=== PATIENT | male | born 1935 | race Caucasian/White ===

== ENCOUNTER → 2019-05-18 | Outpatient (CLI) | payer OTHER, MEDICARE ==
[2019-05-18 13:23] LABS: INTERNATIONAL RATION (INR) 1.54; PROTHROMBIN TIME 18.6 SEC (11.4-15.4)
== END ==
LOC: OD 11:48
PROVIDERS: ATTEND Nurse Practitioner Family
DX: Z51.81 Encounter for therapeutic drug level monitoring (principal); Z92.29 Personal history of other drug therapy; Z79.01 Long term (current) use of anticoagulants
CPT/HCPCS: 36415; 85610

== ENCOUNTER 2019-05-31 13:52 | Emergency (ER) | payer OTHER, MEDICARE ==
--- NOTE | 2019-05-31 14:07 | ER Document Report ---
ED Medical Screen (RME) - General Chief Complaint: Shortness Of Breath Stated Complaint: SHORTNESS OF BREATH Time Seen by Provider: 05/31/19 14:00 Primary Care Provider: JENIFFER BROWN NP [Primary Care Provider] - Follow up as needed Mode of Arrival: Ambulatory Information source: Patient Notes: This 83-year-old male with history of cardiac disease and diabetes presents emergency department with complaints of urinary frequency decreased sleep abdominal pressure for the past 2 weeks. Denies chest pain. Reports he tried to go to see his primary care provider but they were not able to see him and gave an appointment for Tuesday. Reports his sugars have been in the 200s. I have greeted and performed a rapid initial assessment of this patient. A comprehensive ED assessment and evaluation of the patient, analysis of test results and completion of the medical decision making process will be conducted by additional ED providers. Dictation of this chart was performed using voice recognition software; therefore, there may be some unintended grammatical errors. TRAVEL OUTSIDE OF THE [place] IN LAST 30 DAYS: No Doctor's Discharge - Discharge Referrals: JENIFFER BROWN NP [Primary Care Provider] - Follow up as needed
--- NOTE | 2019-05-31 14:44 | RADIOLOGY REPORT (SQ) ---
EXAM DESCRIPTION: KUB/ABDOMEN (SINGLE VIEW) COMPLETED DATE/TIME: 05/31/2019 2:34 pm REASON FOR STUDY: ABD PRESSURE COMPARISON: None. NUMBER OF VIEWS: One view. TECHNIQUE: Supine radiographic image of the abdomen acquired. LIMITATIONS: None. FINDINGS: BOWEL GAS PATTERN: Normal bowel gas pattern. No dilated loops. CALCIFICATIONS: No suspicious calcifications. SOFT TISSUES: No gross mass or suggestion of organomegaly. HARDWARE: None in the abdomen. BONES: No acute fracture. No worrisome bone lesions. OTHER: No other significant finding. IMPRESSION: NO RADIOGRAPHIC EVIDENCE FOR ACUTE ABDOMINAL DISEASE. TECHNICAL DOCUMENTATION: JOB ID: [id number] [employer]- All Rights Reserved Reading location - IP/workstation name: [email or web address]
--- NOTE | 2019-05-31 14:44 | RADIOLOGY REPORT (SQ) ---
EXAM DESCRIPTION: CHEST 2 VIEWS COMPLETED DATE/TIME: 05/31/2019 2:34 pm REASON FOR STUDY: ABD PAIN HX MS COMPARISON: None. EXAM PARAMETERS: NUMBER OF VIEWS: two views TECHNIQUE: Digital Frontal and Lateral radiographic views of the chest acquired. RADIATION DOSE: NA LIMITATIONS: none FINDINGS: LUNGS AND PLEURA: Bilateral pleural effusions. Airspace disease in each lower lobe. MEDIASTINUM AND HILAR STRUCTURES: No masses or contour abnormalities. HEART AND VASCULAR STRUCTURES: Heart size is borderline. No huong pulmonary edema. BONES: No acute findings. HARDWARE: Pacemaker. Sternotomy wires. OTHER: No other significant finding. IMPRESSION: Borderline cardiomegaly with no pulmonary edema. Small pleural effusions. Airspace dis ease in each lower lobe, atelectasis versus pneumonia. TECHNICAL DOCUMENTATION: JOB ID: [id number] [employer]- All Rights Reserved Reading location - IP/workstation name: [email or web address]
[2019-05-31 15:07] LABS: ABSOLUTE EOSINOPHILS # (AUTO) 0.1 10^3/uL (0.0-0.6); ABSOLUTE LYMPHOCYTES (AUTO) 0.5 10^3/uL (0.5-4.7); ABSOLUTE MONOCYTES (AUTO) 0.3 10^3/uL (0.1-1.4); ABSOLUTE NEUT (AUTO) 3.6 10^3/uL (1.7-8.2); EOSINOPHILS % (AUTO) 1.6 % (0-6); HEMATOCRIT 34.1 % (37.9-51.0); LYMPHOCYTES % (AUTO) 11.6 % (13-45); MEAN CORPUSCULAR HGB CONC 32.4 g/dL (32.0-36.0); MEAN CORPUSCULAR VOLUME 80 fl (80-97); MONOCYTES % (AUTO) 7.2 % (3-13); PLATELET COUNT 209 10^3/uL (150-450); RED BLOOD COUNT 4.24 10^6/uL (4.35-5.55); RED CELL DISTRIBUTION WIDTH 17.7 % (11.5-14.0); SEGMENTED NEUTROPHILS % (AUTO) 78.6 % (42-78); TOTAL CELLS COUNTED % (AUTO) 100 %; WHITE BLOOD COUNT 4.6 10^3/uL (4.0-10.5)
[2019-05-31 15:31] LABS: ALKALINE PHOSPHATASE 84 U/L (38-126); ANION GAP 10 (5-19); ASPARTATE AMINO TRANSFERASE 20 U/L (17-59); BILIRUBIN,DIRECT 0.2 mg/dL (0.0-0.4); BILIRUBIN,TOTAL 0.9 mg/dL (0.2-1.3); BLOOD UREA NITROGEN 34 mg/dL (7-20); CALCIUM 9.4 mg/dL (8.4-10.2); CARBON DIOXIDE 27 mmol/L (22-30); CHLORIDE 102 mmol/L (98-107); CREATINE KINASE 55 U/L (55-170); GLUCOSE 165 mg/dL (75-110); POTASSIUM 4.3 mmol/L (3.6-5.0); TOTAL PROTEIN 7.2 g/dL (6.3-8.2)
[2019-05-31 15:43] LABS: CREATINE KINASE MB 2.46 ng/mL (<4.55); TROPONIN I 0.024 ng/mL
--- NOTE | 2019-05-31 16:06 | ER Document Report ---
ED General - General Chief Complaint: Epigastric Pain Stated Complaint: SHORTNESS OF BREATH Time Seen by Provider: 05/31/19 14:00 Primary Care Provider: JENIFFER BROWN NP [NO LOCAL MD] - Follow up as needed Mode of Arrival: Ambulatory TRAVEL OUTSIDE OF THE [place] IN LAST 30 DAYS: No - HPI Patient complains to provider of: SOB Notes: Increasing shortness of breath and orthopnea for 2 weeks. Patient has a lengthy history of congestive heart failure. He states he having difficulty sleeping secondary to huong shortness of breath but gets them in the middle of the night. Patient does take Lasix twice daily. But he has been taking his last dose at 11 PM. She denies chest pain, fever, chills, cough. - Related Data Allergies/Adverse Reactions: No Known Allergies Allergy (Unverified 05/31/19 14:08) Past Medical History - General Information source: Patient - Social History Smoking Status: Never Smoker Chew tobacco use (# tins/day): No Frequency of alcohol use: None Drug Abuse: None Family History: None Patient has suicidal ideation: No Patient has homicidal ideation: No - Past Medical History Cardiac Medical History: Reports: Hx Heart Attack Review of Systems - Review of Systems Notes: REVIEW OF SYSTEMS: CONSTITUTIONAL: -fevers, -chills EENT: -eye pain, -difficulty swallowing, -nasal congestion CARDIOVASCULAR: -chest pain, -syncope, positive orthopnea RESPIRATORY: -cough, positive SOB GASTROINTESTINAL: -abdominal pain, -nausea, -vomiting, -diarrhea GENITOURINARY: -dysuria, -hematuria MUSCULOSKELETAL: -back pain, -neck pain SKIN: -rash or skin lesions. HEMATOLOGIC: -easy bruising or bleeding. LYMPHATIC: -swollen, enlarged glands. NEUROLOGICAL: -altered mental status or loss of consciousness, -headache, - neurologic symptoms PSYCHIATRIC: -anxiety, -depression. ALL OTHER SYSTEMS REVIEWED AND NEGATIVE. Physical Exam - Vital signs Vitals: Temp Pulse Resp BP Pulse Ox 97.5 F 70 16 125/63 98 05/31/19 14:00 05/31/19 14:00 05/31/19 14:00 05/31/19 14:00 05/31/19 14:00 - Notes Notes: PHYSICAL EXAMINATION: GENERAL: Well-appearing, well-nourished and in no acute distress. HEAD: Atraumatic, normocephalic. EYES: Pupils equal round and reactive to light, extraocular movements intact, sclera anicteric, conjunctiva are normal. ENT: nares patent, oropharynx clear without exudates. Moist mucous membranes. NECK: Normal range of motion, supple without lymphadenopathy LUNGS: Bilateral basilar crackles HEART: Regular rate and rhythm without murmurs ABDOMEN: Soft, nontender, normoactive bowel sounds. No guarding, no rebound. No masses appreciated. EXTREMITIES: Normal range of motion, no pitting or edema. No cyanosis. NEUROLOGICAL: Cranial nerves grossly intact. Normal speech, normal gait. Normal sensory and motor exams. PSYCH: Normal mood, normal affect. SKIN: Warm, Dry, normal turgor, no rashes or lesions noted. Course - Re-evaluation Re-evalutation: 05/31/19 16:07 Well-appearing 83-year-old male presents with 2 weeks of increasing symptoms of orthopnea. 05/31/19 16:45 Patient's chest x-ray is some small pleural effusions but no other acute processes. Patient is afebrile, no leukocytosis. No cough. No history of pneumonia. Patient's EKG is nonischemic, troponin near normal. Patient does have severe elevation is proBNP. Patient is scheduled to see his family doctor on Tuesday. Patient had his Lasix cut in half about 2 months ago. He is now taking only 20 mg in the morning and 20 mg afternoon. Encourage patient to go back to 40 mg in the morning 40 mg at night. Patient will be given IV dose of Lasix in the emergency department. Will be discharged home improved return if anything changes follow-up with PCP on Tuesday. - Vital Signs Vital signs: Temp Pulse Resp BP Pulse Ox 97.5 F 70 14 135/75 H 98 05/31/19 14:00 05/31/19 14:00 05/31/19 15:01 05/31/19 15:01 05/31/19 15:01 - Laboratory Result Diagrams: 05/31/19 14:55 05/31/19 14:55 Laboratory results interpreted by me: 05/31/19 05/31/19 05/31/19 14:55 14:55 14:55 RBC 4.24 L Hgb 11.0 L Hct 34.1 L MCH 26.0 L RDW 17.7 H Lymph % (Auto) 11.6 L Seg Neutrophils % 78.6 H APTT 45.9 H BUN 34 H Creatinine 2.11 H Est GFR ( Amer) 36 L Est GFR (MDRD) Non-Af 30 L Glucose 165 H NT-Pro-B Natriuret Pep 05/31/19 14:55 RBC Hgb Hct MCH RDW Lymph % (Auto) Seg Neutrophils % APTT BUN Creatinine Est GFR ( Amer) Est GFR (MDRD) Non-Af Glucose NT-Pro-B Natriuret Pep 98045 H - EKG Interpretation by Me Additional EKG results interpreted by me: 05/31/19 15:58 Atrial sensed pacing rhythm 74 bpm, no ST elevations or depressions, no tacky dysrhythmias. Discharge - Discharge Clinical Impression: CHF (congestive heart failure) Qualifiers: Heart failure type: unspecified Heart failure chronicity: acute on chronic Qualified Code(s): I50.9 - Heart failure, unspecified Condition: Stable Disposition: HOME, SELF-CARE Instructions: Congestive Heart Failure ([facility]) Referrals: JENIFFER BROWN NP [NO LOCAL MD] - Follow up as needed
[2019-05-31 16:11] LABS: PARTIAL THROMBOPLASTIN TIME 45.9 SEC (23.5-35.8)
[2019-05-31] MEDS ORDERED: FUROSEMIDE INJ/PF 40 MG/4 ML SDV IV ONE (16:40)
[2019-05-31 16:47] VITALS: BP 155/81
[2019-05-31 16:48] LABS: INTERNATIONAL RATION (INR) 2.71; PROTHROMBIN TIME 29.3 SEC (11.4-15.4)
--- NOTE | 2019-05-31 19:01 | EKG REPORT ---
SEVERITY:- ABNORMAL ECG - ATRIAL-SENSED VENTRICULAR-PACED COMPLEXES PROBABLE LEFT ATRIAL ABNORMALITY LEFT BUNDLE BRANCH BLOCK : Confirmed by: Mason Diamond MD 31-May-2019 19:00:33
== END 2019-05-31 16:58 | disposition home or self-care (01) ==
LOC: ER 13:52
DX: I50.9 Heart failure, unspecified (principal); J90 Pleural effusion, not elsewhere classified; I25.2 Old myocardial infarction; R06.02 Shortness of breath; R06.01 Orthopnea; Z79.899 Other long term (current) drug therapy
CPT/HCPCS: 93005; 99283; 96374; 36415; 82553; 82962; 82550; 85025; 85610; 85730; 80053; 84484; 83880; 71046; 74018; 93010; J1940

== ENCOUNTER → 2019-07-24 | Outpatient (CLI) | payer OTHER ==
--- NOTE | 2019-07-24 15:31 | RADIOLOGY REPORT (SQ) ---
EXAM DESCRIPTION: CT CHEST WITHOUT COMPLETED DATE/TIME: 07/24/2019 3:09 pm REASON FOR STUDY: I31.3 PERICARDIAL EFFUSION (NONINFLAMMATORY) I31.3 PERICARDIAL EFFUSION (NONINFLA MMATORY) COMPARISON: Chest x-ray dated 05/31/2019 TECHNIQUE: CT scan performed of the chest without intravenous contrast. Images reviewed with lung, soft tissue and bone windows. Reconstructed coronal and sagittal MPR images reviewed. All images st ored on PACS. All CT scanners at this facility use dose modulation, iterative reconstruction, and/or weight based d osing when appropriate to reduce radiation dose to as low as reasonably achievable (ALARA). [facility]: Dose Right [facility]: CareDose [facility]: Dose Right [facility]: Teradose 4D [facility]: [employer] RADIATION DOSE: CT Rad equipment meets quality standard of care and radiation dose reduction techniq ues were employed. CTDIvol: 5.8 mGy. DLP: 245 mGy-cm. mGy. LIMITATIONS: No technical limitations. FINDINGS: LUNGS AND PLEURA: There are moderate bilateral pleural effusions right greater than left. There is basilar atelectasis. HILAR AND MEDIASTINAL STRUCTURES: No identified masses or abnormal nodes. No obvious aneurysm. HEART AND VASCULAR STRUCTURES: No pericardial effusion. No aneurysm. Extensive coronary artery calc ification. UPPER ABDOMEN: No significant findings. Limited exam. THYROID AND OTHER SOFT TISSUES: No masses. No adenopathy. BONES: No acute findings. HARDWARE: Battery pack and leads are in place along with sternotomy wires. OTHER: No other significant findings. IMPRESSION: Moderate bilateral pleural effusions right greater than left. Bibasilar atelectasis. N o pericardial effusion. TECHNICAL DOCUMENTATION: JOB ID: [id number] Quality ID # [id number]: Final reports with documentation of one or more dose reduction techniques (e.g., Au tomated exposure control, adjustment of the mA and/or kV according to patient size, use of iterative reconstruction technique) 2010 [employer]- All Rights Reserved Reading location - IP/workstation name: [email or web address]
== END ==
LOC: RAD 14:29
PROVIDERS: ATTEND Internal Medicine Cardiovascular Disease
DX: I31.3 Pericardial effusion (noninflammatory) (principal)
CPT/HCPCS: 71250; 82565

== ENCOUNTER → 2019-09-11 | Outpatient (CLI) | payer MEDICARE, OTHER ==
--- NOTE | 2019-09-11 16:40 | RADIOLOGY REPORT (SQ) ---
EXAM DESCRIPTION: U/S RETROPERITON (RENAL/AORTA) COMPLETED DATE/TIME: 09/11/2019 3:55 pm REASON FOR STUDY: N18.4 CHRONIC KIDNEY DISEASE, STAGE 4 (SEVERE) N18.4 CHRONIC KIDNEY DISEASE, STAG E 4 (SEVERE) COMPARISON: None. TECHNIQUE: Dynamic and static grayscale images acquired of the kidneys and bladder and recorded on P ACS. Additional selected color Doppler and spectral images recorded. LIMITATIONS: None. FINDINGS: RIGHT KIDNEY: 8.2 cm. Normal echogenicity. No solid or suspicious masses. No hydron ephrosis. No calcifications. LEFT KIDNEY: 8.5 cm. Normal echogenicity. Cyst in the mid kidney measuring 1.6 cm and cyst in th e lower pole measuring 2.8 cm. No solid or suspicious masses. No hydronephrosis. No calcificatio ns. BLADDER: No masses. OTHER FINDINGS: Bilateral pleural effusions. Stones and sludge in the gallbladder. IMPRESSION: 1. SMALL KIDNEYS. CYSTS IN THE LEFT KIDNEY. NO HYDRONEPHROSIS OR ACUTE FINDINGS. 2. PLEURAL EFFUSIONS. STONES AND SLUDGE IN THE GALLBLADDER. TECHNICAL DOCUMENTATION: JOB ID: [id number] [employer]- All Rights Reserved Reading location - IP/workstation name: [email or web address]
== END ==
LOC: RAD 14:49
PROVIDERS: ATTEND Internal Medicine Nephrology
DX: N18.4 Chronic kidney disease, stage 4 (severe) (principal); J90 Pleural effusion, not elsewhere classified; K80.20 Calculus of gallbladder without cholecystitis without obstruction; Q61.02 Congenital multiple renal cysts
CPT/HCPCS: 76770

== ENCOUNTER 2019-12-11 07:53 | Emergency (ER) | payer OTHER, MEDICARE ==
[2019-12-11] MEDS ORDERED: PIPERACILLIN/TAZOBACTAM 3.375 GM VIAL IV ONE (08:30)
--- NOTE | 2019-12-11 08:35 | ER Document Report ---
ED Extremity Problem, Lower - General Information source: Patient TRAVEL OUTSIDE OF THE [place] IN LAST 30 DAYS: No - HPI Patient complains to provider of: Pain Location: Foot Occurred: Last week Onset/Duration: Worse Quality of pain: Achy Pain Level: 2 Recent injury: No Associated symptoms: denies: Chills, Fever, Rapid heart rate Exacerbated by: Movement, Walking Relieved by: Nothing <ANGI COSTELLO - Last Filed: 12/11/19 16:40> <WILY ENGLE - Last Filed: 12/11/19 21:13> <SANDRA MCCARTNEY - Last Filed: 12/12/19 00:33> - General Chief Complaint: Feet Swelling Stated Complaint: FEET SWEELING Time Seen by Provider: 12/11/19 08:11 Primary Care Provider: AYLIN LEYVA DO [Primary Care Provider] - Follow up as needed Notes: Patient presents with diabetic foot wounds to bilateral feet right worse than left. 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 Patient states that he has been performing vinegar and wa ter soaks at home. Patient denies any fever or currently taking any antibiotics (PRAVIN,KELTSTANNER) - Related Data Allergies/Adverse Reactions: No Known Allergies Allergy (Verified 12/11/19 09:18) Past Medical History - General Information source: Patient - Social History Smoking Status: Never Smoker Chew tobacco use (# tins/day): No Frequency of alcohol use: None Drug Abuse: None Occupation: none Family History: None Patient has suicidal ideation: No Patient has homicidal ideation: No - Past Medical History Cardiac Medical History: Reports: Hx Congestive Heart Failure, Hx Coronary Artery Disease, Hx Heart Attack Pulmonary Medical History: Reports: Hx COPD Endocrine Medical History: Reports: Hx Diabetes Mellitus Type 1 Renal/ Medical History: Reports: Hx Benign Prostatic Hyperplasia, Hx Renal Insufficiency Musculoskeletal Medical History: Reports Other - Charcot Past Surgical History: Reports: Hx Coronary Artery Bypass Graft - x3, Hx Pacemaker, Hx Vascular Surgery - Carotid endarterectomy <ANGI COSTELLO - Last Filed: 12/11/19 16:40> Review of Systems - Review of Systems Constitutional: No symptoms reported. denies: Fever EENT: No symptoms reported Cardiovascular: No symptoms reported. denies: Chest pain Respiratory: No symptoms reported. denies: Cough, Short of breath Gastrointestinal: No symptoms reported. denies: Nausea, Vomiting Genitourinary: No symptoms reported Male Genitourinary: No symptoms reported Musculoskeletal: Joint pain - Right foot Skin: Change in color - Erythema to right foot, Other - Foot wounds bilateral feet Hematologic/Lymphatic: No symptoms reported Neurological/Psychological: No symptoms reported <ANGI COSTELLO - Last Filed: 12/11/19 16:40> Physical Exam - General General appearance: Appears well, Alert In distress: None - HEENT Head: Normocephalic, Atraumatic Nasal: Normal Mouth/Lips: Normal Neck: Normal, Supple - Respiratory Respiratory status: No respiratory distress Chest status: Nontender Breath sounds: Normal Chest palpation: Normal - Cardiovascular Rhythm: Regular Heart sounds: S1 appreciated, S2 appreciated - Back Back: Normal. No: CVA tenderness - Extremities General upper extremity: Normal inspection, Normal ROM Foot: Tender - Mild tenderness to right foot, bilateral feet with diabetic foot ulcers, erythema to right foot extending to the ankle - Neurological Neuro grossly intact: Yes Cognition: Normal Orientation: AAOx4 Brandee Coma Scale Eye Opening: Spontaneous Waddell Coma Scale Verbal: Oriented Brandee Coma Scale Motor: Obeys Commands Waddell Coma Scale Total: 15 - Psychological Associated symptoms: Normal affect, Normal mood - Skin Skin Temperature: Warm Skin Moisture: Dry Skin Color: Erythema - Erythema to right foot Skin irregularity: other - Right foot with large diabetic foot wound to the n eural aspect of fifth metatarsal, medial first metatarsal, and chronic appearing crusted wound to the dorsal aspect of the right third toe, foot erythematous and warm to touch. Left foot with denuded area to the plantar surface of left third toe and dorsal second toe, patient with diabetic foot wound to the lateral aspect of the distal fifth metatarsal. Wounds to right foot malodorous. Irregularity with: Tenderness, Warmth, Inflammation <ANGI COSTELLO - Last Filed: 12/11/19 16:40> - Vital signs Vitals: Temp Pulse Resp BP Pulse Ox 97.4 F 86 16 113/54 L 100 12/11/19 07:57 12/11/19 07:57 12/11/19 07:57 12/11/19 07:57 12/11/19 07:57 Course - Laboratory Result Diagrams: 12/11/19 08:50 12/11/19 08:50 - Diagnostic Test Radiology reviewed: Pending, Image reviewed <ANGI COSTELLO - Last Filed: 12/11/19 16:40> - Laboratory Result Diagrams: 12/11/19 08:50 12/11/19 08:50 <WILY ENGLE Shane - Last Filed: 12/11/19 21:13> - Laboratory Result Diagrams: 12/11/19 08:50 12/11/19 08:50 - Diagnostic Test Radiology reviewed: Image reviewed, Reports reviewed <REGIS MCCARTNEYABRAHAM Vitale - Last Filed: 12/12/19 00:33> - Re-evaluation Re-evalutation: 12/11/19 09:55 Patient with cellulitis in the setting of chronic diabetic foot wounds. Wound to the right foot worrisome for possible osteomyelitis although radiology report is still pending at this time. Patient without any fever although does have a leukocytosis with a shift. Patient with a history of chronic kidney disease stage IV although appears to have acute on chronic renal failure at this time. When patient advised of his current BUN and creatinine results he did state that they are higher than normal for him. Patient also takes Coumadin daily and INR is currently pending at this time. Call placed to hospitalist Dr. Fernandez, he will return call for consultation shortly. 12/11/19 10:[address] Coyne, who agrees to come and evaluate patient 12/11/19 10:[address] Zepeda who agrees to accept patient as an [facility] admission at this time. 12/11/19 11:00 Hospitalist and surgeon both evaluated patient. Hospitalist concerned about patient's multiple comorbidities and whether patient is suitable to be managed at this facility. Dr Coyne recommends consultation with anesthesiologist to see if they are comfortable managing patient. Anesthesiologist recommends consultation with patient's asphalt raker, call placed for consultation with Dr. Gallegos, awaiting return call at this time. 12/11/19 11:32 Consulted with patient's asphalt raker Dr. Gallegos who recommends obtaining a stat echocardiogram as well as EKG. He does not feel that patient requires transfer at this time, although if anesthesia is not comfortable performing sedation for the required procedure he states it would be up to them to arrange for transfer to a facility capable of performing the procedure. Dr Zepeda also spoke with Dr. Gallegos and plans to admit the patient at this time. 12/11/19 11:50 Dr Zepeda reports that patient is now requesting transfer to facility that has higher level capability to manage his surgery and any potential complications. Spoke with patient regarding his request for transfer at this time. Patient confirms that he would like to go to a facility that has more advanced capability in case he has any complication due to his cardiac arrest that he had after having a carotid endarterectomy 5 months ago. Explained to patient that his insurance may not cover the transfer fees as this is a patient elected transfer, patient acknowledges this and request transfer at this time. 12/11/19 12:01 Call placed to [facility] [place], [facility] is not accepting pt requested transfers due to the Covid 19 outbreak. Pt advised that we may not be able to transfer him due to the pretty virus pandemic. Pt requests call be made to [facility]. 12/11/19 12:18 Call placed to the [facility] transfer center. Staff there did not have records of [facility], they request additional information to be sent to determine whether or not he is indeed a . Patient updated regarding plan of care at this time. 12/11/19 12:28 Dr. Gallegos and to evaluate patient. 12/11/19 13:23 [facility] called stating that they accidentally deleted patient's demographic sheet and are requesting an additional sheet be refaxed to them. They still do not know if patient is in their system and are not requesting that his complete chart be faxed at this time. They state that they will call back once they know whether or not he is in their system. 12/11/19 13:48 [facility] from [place] called requesting additional information. Transfer center there states that they will contact the [facility] facility to confirm if patient is associated with their facility. Transfer center states that if he is not in the system that he would need to get a local primary care provider in the [facility] system and bring his DD 214 form to their facility before they would be able to assume care of him. 12/11/19 14:19 Spoke with the patient's Stewart at patient's request to update her regarding plan of care at this time. Made contact with the transfer center at the [facility] in [place] states that patient is in the [place] system and that they are in the process of contacting the [place] transfer center. Transfer center states that they will be in contact with additional information. 12/11/19 16:41 Report and handoff given to Wily Engle NP. (ANGI COSTELLO) 12/11/19 19:37 I called and spoke with a transfer center at the [facility] to hopefully get a update on the status of the patient requested transfer. The transfer center reports that they are working on getting the patient's information to the attending physicians so that they can review his case and decide if it is appropriate for transfer. They further stated to me that patient would have to have a negative COVID-19 test prior to transfer acceptance. 12/11/19 20:[address] Coyne came back to the bedside to evaluate the patient and get an update. Since there is currently a hold up with the patient getting accepted at the [facility] he feels that the patient needs to be admitted here so that we can start working on getting his INR to a therapeutic level so that the patient can go to the operating room in the morning. This was discussed with the patient and the patient is in agreements with this plan. Will call hospitalist to discuss. 12/11/19 20:45 Called and spoke with hospitalist, Dr. Vo, he reviewed patient's chart. After reviewing all notes Dr. Vo also feels it would be in the patient's best interest to be at a tertiary facility. I will attempt to get patient transferred to a different facility. 12/11/19 20:55 Discussed situation with patient. Patient is agreeable to be admitted here to [place] or be transferred. Will attempt to call [facility] at this time. 12/11/19 21:05 Currently awaiting callback from [facility] transfer Center. I discussed this case with my attending physician, Dr. Mccartney, given extensive consults made with specialist on this patient Dr. Mccartney will take over care of this patient at this time. (WILY ENGLE) - Vital Signs Vital signs: Temp Pulse Resp BP Pulse Ox 97.7 F 86 23 H 108/60 99 12/11/19 22:01 12/11/19 07:57 12/11/19 23:01 12/11/19 23:00 12/11/19 23:01 - Laboratory Laboratory results interpreted by me: 12/11/19 12/11/19 12/11/19 08:50 08:50 11:21 WBC 21.5 H RBC 3.79 L Hgb 9.8 L Hct 29.9 L MCV 79 L MCH 25.8 L RDW 16.3 H Seg Neuts % (Manual) 97 H Lymphocytes % (Manual) 1 L Monocytes % (Manual) 2 L Abs Neuts (Manual) 20.9 H Abs Lymphs (Manual) 0.2 L PT 72.9 H* INR 8.47 H* APTT 67.7 H Sodium 132.7 L Potassium 3.5 L Carbon Dioxide 18 L BUN 67 H Creatinine 3.88 H Est GFR ( Amer) 18 L Est GFR (MDRD) Non-Af 15 L Glucose 189 H POC Glucose Albumin 3.1 L 12/11/19 22:13 WBC RBC Hgb Hct MCV MCH RDW Seg Neuts % (Manual) Lymphocytes % (Manual) Monocytes % (Manual) Abs Neuts (Manual) Abs Lymphs (Manual) PT INR APTT Sodium Potassium Carbon Dioxide BUN Creatinine Est GFR ( Amer) Est GFR (MDRD) Non-Af Glucose POC Glucose 206 H Albumin Discharge - Discharge Unit Admitted: IMCU <ANGI COSTELLO - Last Filed: 12/11/19 16:40> <WILY ENGLE - Last Filed: 12/11/19 21:13> <SANDRA MCCARTNEY - Last Filed: 12/12/19 00:33> - Discharge Clinical Impression: diabetic foot wounds Cellulitis Qualifiers: Site of cellulitis: extremity Site of cellulitis of extremity: lower extremity Laterality: right Qualified Code(s): L03.115 - Cellulitis of right lower limb Acute on chronic kidney failure Qualifiers: Acute renal failure type: unspecified Chronic kidney disease stage: stage 4 (severe) Qualified Code(s): N17.9 - Acute kidney failure, unspecified Osteomyelitis Qualifiers: Osteomyelitis type: unspecified type Osteomyelitis location: foot Laterality: right Qualified Code(s): M86.9 - Osteomyelitis, unspecified Condition: Stable Disposition: ADMITTED INPATIENT Referrals: AYLIN LEYVA DO [Primary Care Provider] - Follow up as needed
[2019-12-11 09:19] LABS: HEMATOCRIT 29.9 % (37.9-51.0); HEMOGLOBIN 9.8 g/dL (13.5-17.0); MEAN CORPUSCULAR HEMOGLOBIN 25.8 pg (27.0-33.4); MEAN CORPUSCULAR HGB CONC 32.7 g/dL (32.0-36.0); MEAN CORPUSCULAR VOLUME 79 fl (80-97); PLATELET COUNT 307 10^3/uL (150-450); RED BLOOD COUNT 3.79 10^6/uL (4.35-5.55); RED CELL DISTRIBUTION WIDTH 16.3 % (11.5-14.0); WHITE BLOOD COUNT 21.5 10^3/uL (4.0-10.5)
[2019-12-11 09:37] LABS: ALBUMIN 3.1 g/dL (3.5-5.0); ALKALINE PHOSPHATASE 95 U/L (38-126); ANION GAP 16 (5-19); ASPARTATE AMINO TRANSFERASE 18 U/L (17-59); BILIRUBIN,DIRECT 0.2 mg/dL (0.0-0.4); BILIRUBIN,TOTAL 0.9 mg/dL (0.2-1.3); BLOOD UREA NITROGEN 67 mg/dL (7-20); CALCIUM 8.8 mg/dL (8.4-10.2); CARBON DIOXIDE 18 mmol/L (22-30); CHLORIDE 99 mmol/L (98-107); GLUCOSE 189 mg/dL (75-110); POTASSIUM 3.5 mmol/L (3.6-5.0); TOTAL PROTEIN 6.5 g/dL (6.3-8.2)
[2019-12-11 09:45] LABS: ABSOLUTE LYMPHOCYTES# (MANUAL) 0.2 10^3/uL (0.5-4.7); ABSOLUTE MONOCYTES # (MANUAL) 0.4 10^3/uL (0.1-1.4); ANISOCYTOSIS 1+; BASOPHILS % (MANUAL) 0 % (0-2); EOSINOPHILS % (MANUAL) 0 % (0-6); LYMPHOCYTES % (MANUAL) 1 % (13-45); MONOCYTES % (MANUAL) 2 % (3-13); PLATELET COMMENT ADEQUATE; SEGMENTED NEUTROPHILS % (MAN) 97 % (42-78); TOTAL CELLS COUNTED 100
[2019-12-11 09:46] LABS: OVALOCYTES SLIGHT; POIKILOCYTOSIS SLIGHT
[2019-12-11] MEDS ORDERED: NORMAL SALINE 1000 ML 1,000 ML IV ONE (09:51)
--- NOTE | 2019-12-11 10:23 | RADIOLOGY REPORT (SQ) ---
EXAM DESCRIPTION: FOOT BILATERAL 3 VIEWS IMAGES COMPLETED DATE/TIME: 12/11/2019 9:30 am REASON FOR STUDY: diabetic foot wounds bilat COMPARISON: None. NUMBER OF VIEWS: Three views. TECHNIQUE: AP, lateral and oblique radiographic images acquired of the right and left foot. LIMITATIONS: None. FINDINGS: RIGHT: MINERALIZATION: Decreased. BONES: There is cortical destruction and lucency centered around the distal aspect of the 5th metatar shira. Additional cortical lucency noted along the lateral aspect of the proximal 5th phalanx. No dis crete fracture. Degenerative changes with joint space loss, osteophytosis and subchondral sclerosis at multiple joints. JOINTS: No dislocation SOFT TISSUES: Soft tissue ulceration and a likely punctate foci of subcutaneous gas along the lateral midfoot. OTHER: Vascular calcifications. LEFT: MINERALIZATION: Normal. BONES: Mild cortical indistinctness and lucency about the distal aspect of the 5th metatarsal. No de finitive fracture. Degenerative changes with joint space loss, subchondral sclerosis and osteophytos is about multiple joints. There is midfoot collapse and extensive degenerative changes suggestive of Charcot joint. JOINTS: Midfoot collapse with flatfoot deformity and extensive degenerative change. SOFT TISSUES: Vascular calcifications. Questionable soft tissue ulceration along the lateral aspect of the forefoot OTHER: No other significant finding. IMPRESSION: 1. Cortical destruction and lucency centered around the distal aspect of the right 5th metatarsal and proximal phalanx compatible with osteomyelitis. There is overlying soft tissue ulcera tion and defect with associated subcutaneous gas. 2. Mild cortical indistinctness and lucency about the distal aspect of the left 5th metatarsal possi fatmata representing an additional site of osteomyelitis. MRI could be considered for confirmation. 3. Left foot demonstrates midfoot collapse with extensive degenerative change suggestive of Charcot joint. 4. Severe decreased mineralization. TECHNICAL DOCUMENTATION: JOB ID: [id number] 2010 [employer]- All Rights Reserved Reading location - IP/workstation name: [email or web address]
[2019-12-11 11:35] LABS: PARTIAL THROMBOPLASTIN TIME 67.7 SEC (23.5-35.8)
[2019-12-11 11:47] LABS: INTERNATIONAL RATION (INR) 8.47; PROTHROMBIN TIME 72.9 SEC (11.4-15.4)
--- NOTE | 2019-12-11 11:59 | PDOC CONSULTATION ---
Consultation Consult Date: 12/11/19 Provider Consulted: DALLAS ENAMORADO Consult reason:: Evaluate right foot infection History of Present Illness Admission Date/PCP: AYLIN LEYVA DO Patient complains of: Right foot drainage and ulcer. History of Present Illness: ANTONIO HELM is a 83 year old male with diabetes presenting with self treated right lateral foot ulcer that has been present for several weeks with now foul- smelling drainage and some discomfort. Patient has a significant past medical history including what sounds like a carotid endarterectomy complicated by cardiac arrest and congestive heart failure about 5 months ago. Patient also has chronic renal insufficiency and COPD. No fever he has had foul-smelling drainage. Past Medical History Cardiac Medical History: Reports: Congestive Heart Failure, Coronary Artery Disease, Myocardial Infarction Pulmonary Medical History: Reports: Chronic Obstructive Pulmonary Disease (COPD) Endocrine Medical History: Reports: Diabetes Mellitus Type 1 Musculoskeltal Medical History: Reports: Other - Charcot Past Surgical History Past Surgical History: Reports: Coronary Artery Bypass Graft - x3, Pacemaker, Vascular Surgery - Carotid endarterectomy Social History Smoking Status: Never Smoker Electronic Cigarette use?: No Family History Family History: None Parental Family History Reviewed: No Children Family History Reviewed: No Sibling(s) Family History Reviewed.: No Medication/Allergy Allergies/Adverse Reactions: No Known Allergies Allergy (Verified 12/11/19 09:18) Physical Exam Vital Signs: Temp Pulse Resp BP Pulse Ox 97.4 F 86 24 H 104/55 L 96 12/11/19 07:57 12/11/19 07:57 12/11/19 10:01 12/11/19 10:00 12/11/19 10:01 Intake & Output 12/10/19 12/11/19 12/12/19 06:59 06:59 06:59 Intake Total 1000 Balance 1000 Weight 77.5 kg General appearance: PRESENT: no acute distress, cooperative Eye exam: PRESENT: conjunctiva pink Respiratory exam: PRESENT: clear to auscultation nahid Cardiovascular exam: PRESENT: RRR Pulses: PRESENT: normal femoral pulses, other - Unable to palpate pedal pulses. Extremities exam: PRESENT: other - Right foot with a 4 cm full-thickness ulceration at the lateral aspect beginning at the base of his fifth toe with drainage and a woodiness to the surrounding skin. Diffuse right foot edema extending to the ankle. Both of his feet are cool but not cold. Diminished sensations in bilateral lower extremities. On his left foot there are some superficial ulcerations but no drainage. There is edema of his left foot as well. Results Laboratory Results: 12/11/19 08:50 12/11/19 08:50 12/11/19 12/11/19 08:50 08:50 WBC 21.5 H RBC 3.79 L Hgb 9.8 L Hct 29.9 L MCV 79 L MCH 25.8 L MCHC 32.7 RDW 16.3 H Plt Count 307 Seg Neutrophils % Not Reportable Sodium 132.7 L Potassium 3.5 L Chloride 99 Carbon Dioxide 18 L Anion Gap 16 BUN 67 H Creatinine 3.88 H Est GFR ( Amer) 18 L Glucose 189 H Calcium 8.8 Total Bilirubin 0.9 AST 18 Alkaline Phosphatase 95 Total Protein 6.5 Albumin 3.1 L Impressions: Foot X-Ray 12/11/19 08:29 IMPRESSION: 1. Cortical destruction and lucency centered around the distal aspect of the right 5th metatarsal and proximal phalanx compatible with osteomyelitis. There is overlying soft tissue ulceration and defect with associated subcutaneous gas. 2. Mild cortical indistinctness and lucency about the distal aspect of the left 5th metatarsal possibly representing an additional site of osteomyelitis. MRI could be considered for confirmation. 3. Left foot demonstrates midfoot collapse with extensive degenerative change suggestive of Charcot joint. 4. Severe decreased mineralization. Assessment & Plan - Diagnosis (1) Foot osteomyelitis, right Qualifiers: Osteomyelitis type: chronic, with draining sinus Qualified Code(s): M86.471 - Chronic osteomyelitis with draining sinus, right ankle and foot Is this a current diagnosis for this admission?: Yes Plan: Evidence of osteomyelitis of the right fifth toe and metatarsal head. Patient would benefit from a trans-metatarsal amputation of the right fifth toe and local debridement. However patient does have significant comorbidities that may complicate his postoperative and his perioperative course. Hospitalist and anesthesiology have both evaluated this patient and have above-mentioned concerns. Discussions were made with the patient about whether he may be better served at a tertiary care hospital with interventional cardiology and cardiac anesthesiology. Decision is still pending about whether to keep him here or transfer the patient. Will defer this decision to the patient and my medical colleagues. If the patient is admitted here, surgery service will take him to surgery once cardiology has evaluated this patient and his clinical status has been optimized including reversal of his coagulation. Once his right foot infection is under control, it would be worthwhile to get a left foot MRI. He also has evidence of peripheral vascular disease and will also need vascular evaluation for possible angioplasty and stenting.
--- NOTE | 2019-12-11 13:09 | PDOC CONSULTATION ---
Consultation Consult Date: 12/11/19 Attending physician:: TIMOTHY JOHNSON Provider Consulted: CARMENZA MARIA Consult reason:: Preop cardiovascular evaluation History of Present Illness Admission Date/PCP: AYLIN LEYVA DO Patient complains of: Right foot pain History of Present Illness: ANTONIO HELM is a 83 year old male with diabetes presenting with self treated right lateral foot ulcer that has been present for several weeks with now foul- smelling drainage and some discomfort. Patient has a significant past medical history including what sounds like a carotid endarterectomy complicated by cardiac arrest and congestive heart failure about 5 months ago. Patient also has chronic renal insufficiency and COPD. No fever he has had foul-smelling drainage. This history obtained by the surgeon was reviewed. This was confirmed with the patient. Patient has been evaluated in the past by my nurse practitioner in office setting. Patient has known history of cardiomyopathy with depressed EF, coronary artery disease, atrial fibrillation, pacemaker placement, history of CABG. His last EF was noted to be at around 35% with moderate aortic stenosis. Patient is physically inactive. Currently denying any chest pain. Emergency is right foot wet gangrene. Past Medical History Cardiac Medical History: Reports: Congestive Heart Failure, Coronary Artery Disease, Myocardial Infarction Pulmonary Medical History: Reports: Chronic Obstructive Pulmonary Disease (COPD) Endocrine Medical History: Reports: Diabetes Mellitus Type 1 Musculoskeltal Medical History: Reports: Other - Charcot Past Surgical History Past Surgical History: Reports: Coronary Artery Bypass Graft - x3, Pacemaker, Vascular Surgery - Carotid endarterectomy Social History Information Source: Patient Smoking Status: Never Smoker Electronic Cigarette use?: No - Advance Directive Resuscitation Status: Full Code Family History Family History: None Parental Family History Reviewed: Yes Children Family History Reviewed: Yes Sibling(s) Family History Reviewed.: Yes Medication/Allergy Home Medications: Albuterol Sulfate [Albuterol Sulfate Hfa] 8.5 gm IH Q6 12/11/19 Amiodarone HCl [Cordarone 200 mg Tablet] 200 mg PO DAILY 12/11/19 Ascorbic Acid [Vitamin C 500 mg Tablet] 500 mg PO DAILY 12/11/19 Aspirin [Adult Aspirin Regimen] 81 mg PO DAILY 12/11/19 Calcitriol [Rocaltrol 0.25 Mcg Capsule] 1 cap PO MOWEFR@1000 12/11/19 Cholecalciferol (Vitamin D3) [Vitamin D3 1000 Unit Tablet] 1,000 unit PO DAILY 12/11/19 Collagenase Clostridium Hist. [Santyl Ointment 30 gm] 1 applic TP DAILY 12/11/19 Cyanocobalamin (Vitamin B-12) [Vitamin B-12] 1,000 mcg PO BID 12/11/19 Insulin Glargine,Hum.rec.anlog [Lantus Insulin 100 Unit/mL Insulin Pen] 1 unit SUBCUT QHS 12/11/19 Sacubitril/Valsartan [Entresto 24 mg/26 mg Tablet] 1 each PO Q12 12/11/19 Sennosides [Senna Laxative] 17.2 mg PO DAILY 12/11/19 Simvastatin 10 mg PO QHS 12/11/19 Tamsulosin HCl [Flomax] 0.4 mg PO QHS 12/11/19 Torsemide [Demadex 20 mg Tablet] 20 mg PO Q12 12/11/19 Warfarin Sodium [Coumadin 2 mg Tablet] 1 mg PO .MOWETHSASU@1000 12/11/19 Warfarin Sodium [Coumadin 2 mg Tablet] 2 mg PO TUFR@1000 12/11/19 Allergies/Adverse Reactions: No Known Allergies Allergy (Verified 12/11/19 09:18) Review of Systems Constitutional: PRESENT: fever(s). ABSENT: chills, headache(s), weight gain, weight loss Eyes: ABSENT: visual disturbances Ears: ABSENT: hearing changes Cardiovascular: PRESENT: dyspnea on exertion, edema. ABSENT: chest pain, orthropnea, palpitations Respiratory: ABSENT: cough, hemoptysis Gastrointestinal: ABSENT: abdominal pain, constipation, diarrhea, hematemesis, hematochezia, nausea, vomiting Genitourinary: ABSENT: dysuria, hematuria Musculoskeletal: PRESENT: other - Bilateral foot infection right worse than left. ABSENT: joint swelling Integumentary: ABSENT: rash, wounds Neurological: ABSENT: abnormal gait, abnormal speech, confusion, dizziness, focal weakness, syncope Psychiatric: ABSENT: anxiety, depression, homidical ideation, suicidal ideation Endocrine: ABSENT: cold intolerance, heat intolerance, polydipsia, polyuria Hematologic/Lymphatic: ABSENT: easy bleeding, easy bruising Physical Exam Vital Signs: Temp Pulse Resp BP Pulse Ox 97.4 F 86 24 H 104/55 L 96 12/11/19 07:57 12/11/19 07:57 12/11/19 10:01 12/11/19 10:00 12/11/19 10:01 Intake & Output 12/10/19 12/11/19 12/12/19 06:59 06:59 06:59 Intake Total 1000 Balance 1000 Weight 77.5 kg General appearance: PRESENT: no acute distress, well-developed, well-nourished Head exam: PRESENT: atraumatic, normocephalic Eye exam: PRESENT: conjunctiva pink, EOMI, PERRLA. ABSENT: scleral icterus Ear exam: PRESENT: normal external ear exam Mouth exam: PRESENT: moist, tongue midline Neck exam: ABSENT: carotid bruit, JVD, lymphadenopathy, thyromegaly Respiratory exam: PRESENT: clear to auscultation nahid. ABSENT: rales, rhonchi, wheezes Cardiovascular exam: PRESENT: RRR, +S1, +S2, systolic murmur - 2/6 ejection systolic murmur aortic area. ABSENT: diastolic murmur, rubs Pulses: PRESENT: other - Reduced lower extremity peripheral circulation noted.. ABSENT: normal dorsalis pedis pul Vascular exam: PRESENT: other - Cellulitis noted.. ABSENT: normal capillary refill GI/Abdominal exam: PRESENT: normal bowel sounds, soft. ABSENT: distended, guarding, mass, organolmegaly, rebound, tenderness Rectal exam: PRESENT: deferred Extremities exam: PRESENT: full ROM, pedal edema, +1 edema, other - Right foot abscess, with cellulitis. Left toe nonhealing ulcers.. ABSENT: calf tenderness, clubbing Neurological exam: PRESENT: alert, awake, oriented to person, oriented to place, oriented to time, oriented to situation, CN II-XII grossly intact. ABSENT: motor sensory deficit Psychiatric exam: PRESENT: appropriate affect, normal mood. ABSENT: homicidal ideation, suicidal ideation Skin exam: PRESENT: dry, intact, warm. ABSENT: cyanosis, rash Results Laboratory Results: 12/11/19 08:50 12/11/19 08:50 12/11/19 12/11/19 08:50 08:50 WBC 21.5 H RBC 3.79 L Hgb 9.8 L Hct 29.9 L MCV 79 L MCH 25.8 L MCHC 32.7 RDW 16.3 H Plt Count 307 Seg Neutrophils % Not Reportable Sodium 132.7 L Potassium 3.5 L Chloride 99 Carbon Dioxide 18 L Anion Gap 16 BUN 67 H Creatinine 3.88 H Est GFR ( Amer) 18 L Glucose 189 H Calcium 8.8 Total Bilirubin 0.9 AST 18 Alkaline Phosphatase 95 Total Protein 6.5 Albumin 3.1 L EKG Comments: Ventricular paced rhythm. Underlying atrial rhythm most likely atrial fibri llation. Impressions: Foot X-Ray 12/11/19 08:29 IMPRESSION: 1. Cortical destruction and lucency centered around the distal aspect of the right 5th metatarsal and proximal phalanx compatible with osteomyelitis. There is overlying soft tissue ulceration and defect with associated subcutaneous gas. 2. Mild cortical indistinctness and lucency about the distal aspect of the left 5th metatarsal possibly representing an additional site of osteomyelitis. MRI could be considered for confirmation. 3. Left foot demonstrates midfoot collapse with extensive degenerative change suggestive of Charcot joint. 4. Severe decreased mineralization. Assessment & Plan - Diagnosis (1) Coronary artery disease Qualifiers: Coronary Disease-Associated Artery/Lesion type: unspecified vessel or lesion type [place] vs. transplanted heart: [place] heart Associated angina: angina presence unspecified Qualified Code(s): I25.10 - Atherosclerotic heart disease of [place] coronary artery without angina pectoris Is this a current diagnosis for this admission?: Yes (2) Aortic stenosis Qualifiers: Cardiac valve disease etiology: nonrheumatic Qualified Code(s): I35.0 - Nonrheumatic aortic (valve) stenosis Is this a current diagnosis for this admission?: Yes (3) Chronic systolic dysfunction of left ventricle Is this a current diagnosis for this admission?: Yes (4) Acute on chronic kidney failure Qualifiers: Acute renal failure type: unspecified Chronic kidney disease stage: stage 4 (severe) Qualified Code(s): N17.9 - Acute kidney failure, unspecified; N18.4 - Chronic kidney disease, stage 4 (severe) Is this a current diagnosis for this admission?: Yes (5) Cellulitis Qualifiers: Site of cellulitis: extremity Site of cellulitis of extremity: lower extremity Laterality: right Qualified Code(s): L03.115 - Cellulitis of right lower limb (6) Foot osteomyelitis, right Qualifiers: Osteomyelitis type: chronic, with draining sinus Qualified Code(s): M86.471 - Chronic osteomyelitis with draining sinus, right ankle and foot Is this a current diagnosis for this admission?: Yes (7) Preoperative cardiovascular examination Is this a current diagnosis for this admission?: Yes - Notes Notes: Patient presents with significant severe infection of the right foot with underlying osteomyelitis, cellulitis and possibly wet gangrene of the right foot. Patient may also have systemic inflammatory response syndrome. Patient does have significant cardiac comorbidity including LV systolic dysfunction, moderate aortic stenosis, underlying atrial fibrillation as well as advanced renal failure. In addition patient is very elderly and seems somewhat debilitated. Overall perioperative risk is going to be high however option is worse without surgical intervention. Therefore we may need to proceed with amputation surgery as recommended by the surgeon. Amputation surgery can be pe rformed under regional anesthesia. Patient at risk for developing hypotension and cardiac decompensation postop therefore recommend recovery in ICU setting. Should patient become hypotensive, due to presence of aortic stenosis, initial option of pressure agent should be phenylephrine or Ramon-Synephrine. Patient of course would benefit from broad- spectrum antibiotics. Overall agree with plans enumerated by the surgeon. I am told by the ER physician and hospitalist that patient wishes to be yan sferred to tertiary care center. This may or may not be possible in current situation with COVID-19. I am available to help in any way I can. I did order a 2D echo as I feel that this might help in perioperative care. As usual I thank Dr. Chau and the ER physician for involving me in the care of this patient. - Time Time Spent: 30 to 50 Minutes - More than 50% of the time spent coordinating care, discussing management plans with involved caregivers. Management plans discussed with involved personnels. Medical decision making was of moderate to high complexity, patient's has multiple comorbidities. Medications reviewed and adjusted accordingly: Yes
[2019-12-11] MEDS ORDERED: PIPERACILLIN/TAZOBACTAM 2.25 GM VIAL IV ONE (16:40)
--- NOTE | 2019-12-11 19:10 | XCELERA REPORT ---
[address] [address] Transthoracic Echocardiogram Report Name: ANTONIO HELM Age: 83 yrs Gender: Male : 1935 Patient Status: Emergency Patient Location: ER Study Date: 12/11/2019 02:51 PM Height: 70 in Weight: 170 lb BSA: 1.9 m2 Procedure: A complete two-dimensional transthoracic echocardiogram was performed (2D, M-mode, spectral and color flow Doppler). The study was technically difficult with many images being suboptimal in quality. Reason For Study: pre operative Ordering Physician: ANGI COSTELLO Performed By: Taylor Salazar Interpretation Summary LEFT VENTRICLE: LV Systolic function: LVEF is felt to be moderately depressed with best estimate being approximately 35%. LV Diastolic Function: Grade II diastolic dysfunction noted. Wall motion : cannot comment accurately on wall motion. Moderate diffuse hypokinesia noted. Apical movement consistent with pacemaker activation. Left ventricular chamber size : mildly dilated. Left ventricular wall thickness : is increased indicative of Mild LVH. RIGHT VENTRICLE: RV systolic function : is felt to be within normal limit. Right Ventricle Size : mildly dilated LEFT ATRIUM size : moderately dilated. RIGHT ATRIUM size : mildly dilated. INTER ATRIAL SEPTUM : No definite atrial septal defect noted however a small PFO could be missed. AORTIC ROOT : seems to be within normal limits. Ascending aorta is not well visualized. INFERIOR VENA CAVA: normal size but with reduced respiratory variation. VALVES: MITRAL VALVE : thickened and mildly calcified with preserved mobility. Mitral Regurgitation : mild mitral regurgitation is noted. Mitral Stenosis: No mitral stenosis noted. Mitral valve prolapse : none noted. AORTIC VALVE: seems to be trileaflet with moderate thickening and calcification. Mild to moderately reduced mobility. Aortic stenosis : mild to moderate aortic stenosis based on mobility. peak gradient 15 to 20 mmHg. Aortic regurgitation : mild aortic incompetence noted. TRICUSPID VALVE : mobility and structures within normal limit. Tricuspid stenosis : no tricuspid stenosis noted. Tricuspid regurgitation : mild tricuspid regurgitation noted. Estimated RVSP : estimated at approximately 60 mmHg consistent with moderate to severe pulmonary hypertension. PULMONARY VALVE : was not well visualized but no significant abnormalities suspected. Pulmonary stenosis : no pulmonary stenosis noted. Pulmonary regurgitation : no significant pulmonary regurgitation noted. MASSES AND THROMBUS : No definite intracardiac thrombus or masses are noted. Incidental note of pacemaker were noted traversing the tricuspid valve. PERICARDIUM: minimal pericardial effusion was noted. PLEURAL EFFUSION: small left pleural effusion noted. IMPRESSION : 1. Depressed LVEF. Best estimate is 35%. Clinical correlation is requested. 2. Mild LVH noted 3. Grade II [mild] Diastolic Dysfunction noted. 4. Mild to moderate aortic stenosis, mild mitral and mild tricuspid regurgitation noted. 5. LA Is Mildly Dilated, LV mildly dilated, RA mildly dilated. 6. Moderate to severe pulmonary hypertension noted. MMode/2D Measurements & Calculations RVDd: 4.2 cm LVIDd: 5.8 cm FS: 16.7 % Ao root diam: 2.8 cm IVSd: 0.99 cm LVIDs: 4.9 cm EDV(Teich): Ao root area: 168.7 ml LVPWd: 0.99 cm 6.2 cm2 ESV(Teich): LA dimension: 4.7 cm 110.7 ml EF(Teich): 34.4 % LVOT diam: 2.0 cmLVLd ap4: 7.7 cm SV(MOD-sp4): LVOT area: EDV(MOD-sp4): 28.0 ml 3.0 cm2 114.0 ml LVLs ap4: 7.2 cm ESV(MOD-sp4): 86.0 ml EF(MOD-sp4): 24.6 % Doppler Measurements & Calculations MV E max jasmina: MV V2 max: MV P1/2t max jasmina: Ao V2 max: 278.0 cm/sec 272.6 cm/sec 271.5 cm/sec 194.1 cm/sec MV max PG: MV P1/2t: 68.1 msec Ao max P.7 mmHg 15.1 mmHg MVA(P1/2t): 3.2 cm2 MV V2 mean: MV dec slope: ALEXANDRO(V,D): 1.4 cm2 182.6 cm/sec 1167 cm/sec2 MV mean P.1 mmHg MV V2 VTI: 50.8 cm MVA(VTI): 0.96 cm2 AI max jasmina: LV V1 max PG: SV(LVOT): 48.9 ml PA V2 max: 297.1 cm/sec 3.3 mmHg 90.8 cm/sec AI max P.3 mmHgLV V1 mean PG: PA max P.3 mmHg AI dec slope: 1.7 mmHg 267.7 cm/sec2 LV V1 max: AI P1/2t: 325.1 msec91.1 cm/sec LV V1 mean: 60.3 cm/sec LV V1 VTI: 16.3 cm PI end-d jasmina: TR max jasmina: AV P1/2t-pr_phl: MV P1/2t-pr_phl: 202.2 cm/sec 389.6 cm/sec 325.1 msec 68.1 msec TR max P.7 mmHg : ANGI COSTELLO Shyamal
--- NOTE | 2019-12-11 20:35 | PDOC PROGRESS REPORT ---
Subjective Progress Note for:: 12/11/19 Reason For Visit: BLOOD SUGAR PROBLEMS Physical Exam Vital Signs: Temp Pulse Resp BP Pulse Ox 98.3 F 86 19 121/68 98 12/11/19 14:38 12/11/19 07:57 12/11/19 14:01 12/11/19 14:01 12/11/19 14:01 Intake & Output 12/10/19 12/11/19 12/12/19 06:59 06:59 06:59 Intake Total 1000 Balance 1000 Weight 77.5 kg Results Laboratory Results: 12/11/19 08:50 12/11/19 08:50 12/11/19 12/11/19 08:50 08:50 WBC 21.5 H RBC 3.79 L Hgb 9.8 L Hct 29.9 L MCV 79 L MCH 25.8 L MCHC 32.7 RDW 16.3 H Plt Count 307 Seg Neutrophils % Not Reportable Sodium 132.7 L Potassium 3.5 L Chloride 99 Carbon Dioxide 18 L Anion Gap 16 BUN 67 H Creatinine 3.88 H Est GFR ( Amer) 18 L Glucose 189 H Calcium 8.8 Total Bilirubin 0.9 AST 18 Alkaline Phosphatase 95 Total Protein 6.5 Albumin 3.1 L Impressions: Foot X-Ray 12/11/19 08:29 IMPRESSION: 1. Cortical destruction and lucency centered around the distal aspect of the right 5th metatarsal and proximal phalanx compatible with osteomyelitis. There is overlying soft tissue ulceration and defect with associated subcutaneous gas. 2. Mild cortical indistinctness and lucency about the distal aspect of the left 5th metatarsal possibly representing an additional site of osteomyelitis. MRI could be considered for confirmation. 3. Left foot demonstrates midfoot collapse with extensive degenerative change suggestive of Charcot joint. 4. Severe decreased mineralization. Assessment & Plan - Diagnosis (1) Foot osteomyelitis, right Qualifiers: Osteomyelitis type: subacute Qualified Code(s): M86.271 - Subacute osteomyelitis, right ankle and foot Is this a current diagnosis for this admission?: Yes Plan: Attempt transfer was made as per patient request however no facility has accepted this patient. There may be significant delay with transfer to the [place]. I have discussed with the patient again the need for urgent surgery. Although it would be ideal for him to be taken care of at a tertiary care center, he can receive appropriate care at our facility for this urgent problem. He has agreed to be admitted to the hospital and undergo reversal of his Coumadin anticoag ulation so that he can undergo surgery at our facility. [facility] we can still transfer him.
--- NOTE | 2019-12-11 23:23 | ER Document Report ---
ED Medical Screen (RME) - General Chief Complaint: Feet Swelling Stated Complaint: FEET SWEELING Time Seen by Provider: 12/11/19 08:11 Primary Care Provider: AYLIN LEYVA DO [Primary Care Provider] - Follow up as needed Notes: I was approached to help with this patient did about 9:30 PM by physician kindergarten teacher assistant Soledad. The patient is been here for 13 hours after being diagnosed with an infected foot sepsis and the need for an amputation. He has been seen by medicine anesthesia surgery and cardiology and was supposed to be admitted to the hospitalist but I discussed with Dr. Vo and he is uncomfortable adm itting the patient given a cardiac arrest in the last several months, and what he describes as the electric mule driver opinion that the patient requires tertiary care and the surgeon's opinion that the patient will require vascular surgery. We have opted to transfer the patient and he was discussed with Dr. Joe Waldron from [facility] who will accept him for transfer. His INR was elevated and based on previous providers research/recommendations his Coumadin has been held but no reversal has been done given that he had a recent an endarterectomy. He is stable with no active bleeding. He is stable for transfer. TRAVEL OUTSIDE OF THE [place] IN LAST 30 DAYS: No - Related Data Allergies/Adverse Reactions: No Known Allergies Allergy (Verified 12/11/19 09:18) Home Medications: calcitrol 1 tab 0.25 mcg 3 times a week. warfarin 1-2 tabs 2mg 1 per day as directed. amiodorone 1 tab 200mg 1tab per day. tamsulosin 1 tab 0.4mg 1 at bedtime. torsemide 1 tab 20mg 2 tabs per day. simvastatin 1/2tab, 20mg 1tab at bedtime. albuterol inhl 90mcg, 4 per day. insulin, glargine-lantus solostar 1unit, 100unit/ml 3ml at bedtime. collagnenase top oint 250units apply to feet. aspirin 81mg, 1 a day. senna laxative 2 tabs per day. vit d3, 1000mg, one day. vit c 1000mg, one a day. vit b12 Past Medical History - Social History Chew tobacco use (# tins/day): No Frequency of alcohol use: None Drug Abuse: None - Past Medical History Cardiac Medical History: Reports: Hx Congestive Heart Failure, Hx Coronary Artery Disease, Hx Heart Attack Pulmonary Medical History: Reports: Hx COPD Endocrine Medical History: Reports: Hx Diabetes Mellitus Type 1 Renal/ Medical History: Reports: Hx Benign Prostatic Hyperplasia, Hx Renal Insufficiency Musculoskeltal Medical History: Reports Other - Charcot Past Surgical History: Reports: Hx Coronary Artery Bypass Graft - x3, Hx Pacemaker, Hx Vascular Surgery - Carotid endarterectomy Physical Exam - Vital signs Vitals: Temp Pulse Resp BP Pulse Ox 97.4 F 86 16 113/54 L 100 12/11/19 07:57 12/11/19 07:57 12/11/19 07:57 12/11/19 07:57 12/11/19 07:57 Course - Vital Signs Vital signs: Temp Pulse Resp BP Pulse Ox 97.7 F 86 19 123/64 97 12/11/19 22:01 12/11/19 07:57 12/11/19 22:01 12/11/19 22:00 12/11/19 22:01 - Laboratory Result Diagrams: 12/11/19 08:50 12/11/19 08:50 Laboratory results interpreted by me: 12/11/19 12/11/19 12/11/19 08:50 08:50 11:21 WBC 21.5 H RBC 3.79 L Hgb 9.8 L Hct 29.9 L MCV 79 L MCH 25.8 L RDW 16.3 H Seg Neuts % (Manual) 97 H Lymphocytes % (Manual) 1 L Monocytes % (Manual) 2 L Abs Neuts (Manual) 20.9 H Abs Lymphs (Manual) 0.2 L PT 72.9 H* INR 8.47 H* APTT 67.7 H Sodium 132.7 L Potassium 3.5 L Carbon Dioxide 18 L BUN 67 H Creatinine 3.88 H Est GFR ( Amer) 18 L Est GFR (MDRD) Non-Af 15 L Glucose 189 H POC Glucose Albumin 3.1 L 12/11/19 22:13 WBC RBC Hgb Hct MCV MCH RDW Seg Neuts % (Manual) Lymphocytes % (Manual) Monocytes % (Manual) Abs Neuts (Manual) Abs Lymphs (Manual) PT INR APTT Sodium Potassium Carbon Dioxide BUN Creatinine Est GFR ( Amer) Est GFR (MDRD) Non-Af Glucose POC Glucose 206 H Albumin Doctor's Discharge - Discharge Clinical Impression: diabetic foot wounds Cellulitis Qualifiers: Site of cellulitis: extremity Site of cellulitis of extremity: lower extremity Laterality: right Qualified Code(s): L03.115 - Cellulitis of right lower limb Acute on chronic kidney failure Qualifiers: Acute renal failure type: unspecified Chronic kidney disease stage: stage 4 (severe) Qualified Code(s): N17.9 - Acute kidney failure, unspecified Osteomyelitis Qualifiers: Osteomyelitis type: unspecified type Osteomyelitis location: foot Laterality: right Qualified Code(s): M86.9 - Osteomyelitis, unspecified Condition: Stable Disposition: ADMITTED INPATIENT Referrals: AYLIN LEYVA DO [Primary Care Provider] - Follow up as needed
[2019-12-12 00:35] VITALS: BP 120/61
--- NOTE | 2019-12-12 07:23 | EKG REPORT ---
SEVERITY:- ABNORMAL ECG - VENTRICULAR-PACED COMPLEXES : Confirmed by: Marcel Gallegos 12-Dec-2019 07:22:59
== END 2019-12-12 00:57 | disposition short-term general hospital (02) ==
LOC: ER 07:53
DX: E10.621 Type 1 diabetes mellitus with foot ulcer (principal); L97.519 Non-pressure chronic ulcer of other part of right foot with unspecified severity; L97.529 Non-pressure chronic ulcer of other part of left foot with unspecified severity; L03.115 Cellulitis of right lower limb; E10.69 Type 1 diabetes mellitus with other specified complication; M86.9 Osteomyelitis, unspecified; E10.22 Type 1 diabetes mellitus with diabetic chronic kidney disease; I13.0 Hypertensive heart and chronic kidney disease with heart failure and stage 1 through stage 4 chronic kidney disease, or unspecified chronic kidney disease; N18.4 Chronic kidney disease, stage 4 (severe); I50.9 Heart failure, unspecified; N17.9 Acute kidney failure, unspecified; I35.0 Nonrheumatic aortic (valve) stenosis; I25.10 Atherosclerotic heart disease of native coronary artery without angina pectoris; J44.9 Chronic obstructive pulmonary disease, unspecified; I48.91 Unspecified atrial fibrillation; I25.2 Old myocardial infarction; N40.0 Benign prostatic hyperplasia without lower urinary tract symptoms; Z79.899 Other long term (current) drug therapy; Z79.4 Long term (current) use of insulin; Z79.82 Long term (current) use of aspirin; Z95.5 Presence of coronary angioplasty implant and graft; Z95.0 Presence of cardiac pacemaker
CPT/HCPCS: 99285; 96361; 96365; 36415; 87040; 87070; 87205; 82962; 85025; 85610; 85730; 87077; 80053; 87186; 93306; 73630; 93005; 93010; J7030; J2543 ×2

== ENCOUNTER 2020-01-25 12:54 | Inpatient (IN) | payer OTHER, MEDICARE ==
[2020-01-25] MEDS ORDERED: DEXTROSE 5%-WATER 250 ML with NOREPINEPHRINE BITARTRATE 4 MG IV PRN ×2 (13:13)
[2020-01-25] MEDS ORDERED: NOREPINEPHRINE BITARTRATE INJ/PF 4 MG/4 ML SDV IV ONE (13:22)
[2020-01-25 13:36] LABS: HEMATOCRIT 27.7 % (37.9-51.0); HEMOGLOBIN 8.4 g/dL (13.5-17.0); MEAN CORPUSCULAR HEMOGLOBIN 26.1 pg (27.0-33.4); MEAN CORPUSCULAR HGB CONC 30.5 g/dL (32.0-36.0); MEAN CORPUSCULAR VOLUME 86 fl (80-97); PLATELET COUNT 166 10^3/uL (150-450); RED BLOOD COUNT 3.23 10^6/uL (4.35-5.55); RED CELL DISTRIBUTION WIDTH 19.8 % (11.5-14.0); WHITE BLOOD COUNT 22.4 10^3/uL (4.0-10.5)
[2020-01-25 13:39] LABS: ALBUMIN 2.4 g/dL (3.5-5.0); ALKALINE PHOSPHATASE 157 U/L (38-126); ANION GAP 16 (5-19); BILIRUBIN,TOTAL 1.5 mg/dL (0.2-1.3); BLOOD UREA NITROGEN 23 mg/dL (7-20); CALCIUM 8.4 mg/dL (8.4-10.2); CARBON DIOXIDE 19 mmol/L (22-30); CHLORIDE 97 mmol/L (98-107); GLUCOSE 130 mg/dL (75-110); POTASSIUM 3.9 mmol/L (3.6-5.0); TOTAL PROTEIN 4.7 g/dL (6.3-8.2)
[2020-01-25 13:43] LABS: INTERNATIONAL RATION (INR) 3.32; PROTHROMBIN TIME 34.5 SEC (11.4-15.4)
--- NOTE | 2020-01-25 13:48 | RADIOLOGY REPORT (SQ) ---
EXAM DESCRIPTION: CHEST SINGLE VIEW IMAGES COMPLETED DATE/TIME: 01/25/2020 1:26 pm REASON FOR STUDY: Possible sepsis COMPARISON: AP and lateral views of the chest from 05/31/2019 EXAM PARAMETERS: NUMBER OF VIEWS: One view. TECHNIQUE: An AP view of the chest was obtained. RADIATION DOSE: NA LIMITATIONS: None. FINDINGS: LUNGS AND PLEURA: Increased bilateral basilar predominant opacities that obscure the conto urs of the hemidiaphragms and blunt the costophrenic sulci. The horizontal fissure is thickened. Th e interstitium is indistinct. There is no pneumothorax. MEDIASTINUM AND HILAR STRUCTURES: No mediastinal or hilar contour abnormality. HEART AND VASCULAR STRUCTURES: The cardiac silhouette is enlarged. The pulmonary vasculature is eunice stinct. BONES: No acute findings. HARDWARE: Status post median sternotomy. There is at intact left subclavian vein approach transvenou s pacemaker in place. The tip of the right IJ tunnel hemodialysis catheter projects at the level of the cavoatrial junction. OTHER: No other finding. IMPRESSION: Cardiomegaly, bilateral pleural effusions and indistinctness of the interstitium. Clini gerson correlation to exclude CHF/ pulmonary edema is recommended. TECHNICAL DOCUMENTATION: JOB ID: [id number] 2010 [employer]- All Rights Reserved Reading location - IP/workstation name: [email or web address]
[2020-01-25 14:02] LABS: ABSOLUTE MONOCYTES # (MANUAL) 0.2 10^3/uL (0.1-1.4); BASOPHILS % (MANUAL) 0 % (0-2); EOSINOPHILS % (MANUAL) 1 % (0-6); LYMPHOCYTES % (MANUAL) 0 % (13-45); MONOCYTES % (MANUAL) 1 % (3-13); SEGMENTED NEUTROPHILS % (MAN) 98 % (42-78); TOTAL CELLS COUNTED 100
[2020-01-25 14:04] LABS: ANISOCYTOSIS 2+; BURR CELLS SLIGHT; OVALOCYTES 1+; PLATELET COMMENT ADEQUATE; POIKILOCYTOSIS 1+; POLYCHROMASIA 1+; SCHISTOCYTES SLIGHT; TARGET CELLS SLIGHT; TEAR DROP CELLS SLIGHT; TOXIC VACUOLATION PRESENT
[2020-01-25 14:17] LABS: ASPARTATE AMINO TRANSFERASE 5064 U/L (17-59)
[2020-01-25 14:27] LABS: ARTERIAL BLOOD H2CO3 0.83 mmol/L (1.05-1.35); ARTERIAL BLOOD O2 SATURATION 94.3 % (94-98); ARTERIAL BLOOD PCO2 27.5 mmHg (35-45); ARTERIAL BLOOD PH 7.38 (7.35-7.45); ARTERIAL BLOOD PO2 70.5 mmHg (80-100); ARTERIAL BLOOD TOTAL CO2 16.8 mmol/L (23-27)
[2020-01-25 14:28] LABS: ARTERIAL BLOOD FIO2 28%
[2020-01-25] MEDS: PIPERACILLIN SODIUM/TAZOBACTAM 4.5 GM in NORMAL SALINE 100 ML IV SCH ×2 (14:35→19:39)
[2020-01-25 14:47] LABS: APPEARANCE,URINE TURBID; BILIRUBIN,URINE NEGATIVE (NEGATIVE); COLOR,URINE YELLOW; GLUCOSE, URINE NEGATIVE (NEGATIVE); KETONES,URINE TRACE mg/dL (NEGATIVE); PROTEIN,URINE 100 mg/dL (NEGATIVE); URINE SPECIFIC GRAVITY 1.023; UROBILINOGEN,URINE NEGATIVE mg/dL (<2.0)
--- NOTE | 2020-01-25 16:22 | ER Document Report ---
ED Dizziness/Weakness - General Chief Complaint: General Weakness Stated Complaint: GENERAL WEAKNESS Time Seen by Provider: 01/25/20 13:13 Primary Care Provider: AYLIN LEYVA DO [Primary Care Provider] - Follow up as needed Mode of Arrival: Medic Information source: POA - Power of Wireless Engineer Notes: 4-year-old man presents to the emergency department with a history of was at dialysis when he became less responsive and hypotensive. Patient was brought to the emergency department by EMS, he was gone on Levophed for the hypotension. Apparently history of right lower extremity amputation and left lower extremity which has some breakdown of the foot and lower leg. I have spoken to the patient's who states that she does not want him to have another surgery or aggressive intervention. The patient is DNR/DNI and comfort/palliative care only. In the ER septic work-up was performed and blood cultures done. Patient received Zosyn 3.375 g IV. He is unable to answer questions and is poorly responsive to verbal stimuli. TRAVEL OUTSIDE OF THE [place] IN LAST 30 DAYS: No - Related Data Allergies/Adverse Reactions: No Known Allergies Allergy (Verified 01/25/20 13:22) Past Medical History - Social History Smoking Status: Unknown if Ever Smoked Family History: None Patient has homicidal ideation: No - Past Medical History Cardiac Medical History: Reports: Hx Congestive Heart Failure, Hx Coronary Artery Disease, Hx Heart Attack Pulmonary Medical History: Reports: Hx COPD Endocrine Medical History: Reports: Hx Diabetes Mellitus Type 1 Renal/ Medical History: Reports: Hx Benign Prostatic Hyperplasia, Hx Renal Insufficiency Past Surgical History: Reports: Hx Coronary Artery Bypass Graft - x3, Hx Pacemaker, Hx Vascular Surgery - Carotid endarterectomy Review of Systems - Review of Systems -: Yes ROS unobtainable due to patient's medical condition - Poorly responsive and nonverbal. Physical Exam - Vital signs Vitals: Resp 01/25/20 12:56 - Notes Notes: PHYSICAL EXAMINATION: Physical Exam: General: Frail elderly male, chronically ill and hypotensive upon presentation. HEENT: NC/AT, pupils equal round and reactive to light, MM moist,nares clear, oropharynx clear, airway patent Neck: supple, no adenopathy, no masses. Lungs: clear, no respiratory distress CVS: Regular rate and rhythm no murmur gallop or rub Abdomen: Soft, active, nontender, no masses, no hepatosplenomegaly Ext: Right AKA, healing stump, left lower extremity with cool distal extremity, emaciation of the toes on the left foot and lateral lower leg dark eschar. Neuro: Poorly responsive, obtunded Skin: Intact except for left lower extremity. Course - Re-evaluation Re-evalutation: 01/25/20 16:30 Patient was seen and a sepsis work-up was started, apparently power of sports attorney, Stewart Osorio has voiced desire for no aggressive interventions, DNR/DNI status. I have explained to the that he is critically ill at this time and likely septic, he had a receiving IV dose of antibiotics and medications to support his blood pressure prior to our discussion. She does not want the pat ient transferred and states that they would be trying to get hospice set up next week. Contacted the hospitalist Dr. Fernandez, patient will be admitted to the hospitalist service comfort care/palliative care. 01/25/20 19:45 There was discussion with the regarding antibiotic treatment and her desire to have antibiotic treatment. I have contacted and explained that presently, there is no dialysis available at [facility] during the weekend, if she would request aggressive care, it likely would acquire a transfer. The notes that she wanted to talk to her son. The son called and the nurse and I did discuss the gravity of Mr. Osorio's medical condition. WBC count 22,400, lactate 5.6, necrotic left lower extremity, elevated liver enzymes and renal failure with advanced age. There is a desire to have no further surgery and to have no aggressive intervention would result in with or without antibiotics. - Vital Signs Vital signs: Temp Pulse Resp BP Pulse Ox 96.3 F L 23 H 91/41 L 95 01/25/20 13:22 01/25/20 20:01 01/25/20 20:00 01/25/20 20:01 - Laboratory Result Diagrams: 01/25/20 13:03 01/25/20 13:03 Laboratory results interpreted by me: 01/25/20 01/25/20 01/25/20 13:03 13:03 13:03 WBC 22.4 H RBC 3.23 L Hgb 8.4 L Hct 27.7 L MCH 26.1 L MCHC 30.5 L RDW 19.8 H Seg Neuts % (Manual) 98 H Lymphocytes % (Manual) 0 L Monocytes % (Manual) 1 L Abs Neuts (Manual) 22.0 H Abs Lymphs (Manual) 0.0 L PT 34.5 H Carbonic Acid ABG pCO2 ABG pO2 ABG HCO3 ABG Total CO2 Sodium 131.7 L Chloride 97 L Carbon Dioxide 19 L BUN 23 H Creatinine 1.81 H Est GFR ( Amer) 43 L Est GFR (MDRD) Non-Af 36 L Glucose 130 H Lactic Acid Total Bilirubin 1.5 H Direct Bilirubin 1.0 H AST 5064 H ALT 2899 H Alkaline Phosphatase 157 H Total Protein 4.7 L Albumin 2.4 L Urine Protein Urine Ketones Urine Blood Leukocyte Esterase Rfl 01/25/20 01/25/20 01/25/20 13:03 14:10 14:25 WBC RBC Hgb Hct MCH MCHC RDW Seg Neuts % (Manual) Lymphocytes % (Manual) Monocytes % (Manual) Abs Neuts (Manual) Abs Lymphs (Manual) PT Carbonic Acid 0.83 L ABG pCO2 27.5 L ABG pO2 70.5 L ABG HCO3 16.0 L ABG Total CO2 16.8 L Sodium Chloride Carbon Dioxide BUN Creatinine Est GFR ( Amer) Est GFR (MDRD) Non-Af Glucose Lactic Acid 5.6 H Total Bilirubin Direct Bilirubin AST ALT Alkaline Phosphatase Total Protein Albumin Urine Protein 100 H Urine Ketones TRACE H Urine Blood LARGE H Leukocyte Esterase Rfl MODERATE H 01/25/20 16:40 WBC RBC Hgb Hct MCH MCHC RDW Seg Neuts % (Manual) Lymphocytes % (Manual) Monocytes % (Manual) Abs Neuts (Manual) Abs Lymphs (Manual) PT Carbonic Acid ABG pCO2 ABG pO2 ABG HCO3 ABG Total CO2 Sodium Chloride Carbon Dioxide BUN Creatinine Est GFR ( Amer) Est GFR (MDRD) Non-Af Glucose Lactic Acid 5.1 H Total Bilirubin Direct Bilirubin AST ALT Alkaline Phosphatase Total Protein Albumin Urine Protein Urine Ketones Urine Blood Leukocyte Esterase Rfl 01/25/20 19:58 I have reviewed laboratory data and used this information for the treatment decisions regarding the patient. - Diagnostic Test Radiology reviewed: Image reviewed, Reports reviewed - Chest x-ray: Cardio megaly, pulmonary edema/bilateral pleural effusion, CHF/edema. - EKG Interpretation by Nm Rhythm: Other - Pacemaker, ventricular paced rhythm, 68. Discharge - Discharge Clinical Impression: Palliative care patient, DNR (do not resuscitate), Elevated liver enzymes, End- stage renal disease on hemodialysis Hypotension Qualifiers: Hypotension type: other hypotension type Qualified Code(s): I95.89 - Other hypotension Leukocytosis Qualifiers: Leukocytosis type: bandemia Qualified Code(s): D72.825 - Bandemia Congestive heart failure Qualifiers: Heart failure type: unspecified Heart failure chronicity: unspecified Qualified Code(s): I50.9 - Heart failure, unspecified Hx of AKA (above knee amputation) Qualifiers: Laterality: right Qualified Code(s): Z89.611 - Acquired absence of right leg above knee Condition: Serious Disposition: ADMITTED INPATIENT Admitting Provider: Tavo (Hospitalist) Unit Admitted: Medical Floor Referrals: AYLIN LEYVA DO [Primary Care Provider] - Follow up as needed
[2020-01-25] MEDS ORDERED: ACETAMINOPHEN 325 MG TABLET PO PRN (20:35)
[2020-01-25] MEDS ORDERED: ACETAMINOPHEN 650 MG SUPP.RECT PR PRN (20:35)
[2020-01-26] MEDS: PIPERACILLIN SODIUM/TAZOBACTAM 4.5 GM in NORMAL SALINE 100 ML IV SCH (01:03)
[2020-01-26] MEDS: FENTANYL CITRATE INJ/PF 100 MCG/2 ML AMPUL IV PRN ×2 (02:17→06:18)
--- NOTE | 2020-01-26 02:52 | PDOC H&P ---
History of Present Illness Admission Date/PCP: 01/25/20 20:30 AYLIN LEYVA DO Patient complains of: Weakness History of Present Illness: ANTONIO HELM is a 84 year old male with extensive past medical history of end- stage renal failure on hemodialysis, dementia, peripheral vascular disease status post right and left lower extremity amputation and sacral decubitus. He presents after found hypotensive during dialysis which is discontinued prematurely was brought to the emergency room by EMS requiring Levophed. In the emergency department he is altered and nonverbal with severe hypotension and sepsis with several necrotic ulcers of the lower extremity and recent amputation site with livedo reticularis. The patient's who is power of claim attorney declines any further aggressive management including central line placement, dialysis or surgery wishing for comfort measures only. Levo fed is discontinued and he is transferred to the hospitalist for inpatient comfort care. Patient's CODE STATUS is verified is DNR. Past Medical History Cardiac Medical History: Reports: Congestive Heart Failure, Coronary Artery Disease, Myocardial Infarction Pulmonary Medical History: Reports: Chronic Obstructive Pulmonary Disease (COPD) Endocrine Medical History: Reports: Diabetes Mellitus Type 1 Psychiatric Medical History: Reports: Depression Past Surgical History Past Surgical History: Reports: Coronary Artery Bypass Graft - x3, Pacemaker, Vascular Surgery - Carotid endarterectomy Social History Information Source: [facility] Records Lives with: Spouse/Significant other Smoking Status: Unknown if Ever Smoked Frequency of Alcohol Use: None Drugs: None - Advance Directive Resuscitation Status: Do Not Resuscitate Family History Family History: Other - Unobtainable Parental Family History Reviewed: No - Unobtainable Children Family History Reviewed: No - Unobtainable Sibling(s) Family History Reviewed.: No - Unobtainable Medication/Allergy Home Medications: Albuterol Sulfate [Albuterol Sulfate Hfa] 8.5 gm IH Q6 12/11/19 Amiodarone HCl [Cordarone 200 mg Tablet] 200 mg PO DAILY 12/11/19 Ascorbic Acid [Vitamin C 500 mg Tablet] 500 mg PO DAILY 12/11/19 Aspirin [Adult Aspirin Regimen] 81 mg PO DAILY 12/11/19 Calcitriol [Rocaltrol 0.25 Mcg Capsule] 1 cap PO MOWEFR@1000 12/11/19 Cholecalciferol (Vitamin D3) [Vitamin D3 1000 Unit Tablet] 1,000 unit PO DAILY 12/11/19 Collagenase Clostridium Hist. [Santyl Ointment 30 gm] 1 applic TP DAILY 12/11/19 Cyanocobalamin (Vitamin B-12) [Vitamin B-12] 1,000 mcg PO BID 12/11/19 Insulin Glargine,Hum.rec.anlog [Lantus Insulin 100 Unit/mL Insulin Pen] 0 unit SUBCUT .PER SLIDING SCALE 12/11/19 Sacubitril/Valsartan [Entresto 24 mg/26 mg Tablet] 1 each PO Q12 12/11/19 Sennosides [Senna Laxative] 17.2 mg PO DAILY 12/11/19 Simvastatin 10 mg PO QHS 12/11/19 Tamsulosin HCl [Flomax] 0.4 mg PO QHS 12/11/19 Torsemide [Demadex 20 mg Tablet] 20 mg PO Q12 12/11/19 Warfarin Sodium [Coumadin 2 mg Tablet] 1 mg PO .MOWETHSASU@1000 12/11/19 Warfarin Sodium [Coumadin 2 mg Tablet] 2 mg PO TUFR@1000 12/11/19 Allergies/Adverse Reactions: No Known Allergies Allergy (Verified 01/25/20 13:22) Review of Systems ROS unobtainable: Due to mental status Physical Exam Vital Signs: Temp Pulse Resp BP Pulse Ox 97.9 F 74 16 90/34 L 90 L 01/25/20 23:46 01/25/20 23:46 01/25/20 23:46 01/25/20 23:46 01/25/20 23:46 Intake & Output 01/24/20 01/25/20 01/26/20 11:59 11:59 11:59 Intake Total 297 Balance 297 General appearance: PRESENT: severe distress, thin, other - Critically ill- appearing, bilateral temporal wasting and cachexia. ABSENT: well-developed, well-nourished Exam: Chronic and critically ill-appearing Head exam: PRESENT: atraumatic, normocephalic Eye exam: PRESENT: conjunctiva pink, EOMI, PERRLA. ABSENT: scleral icterus Ear exam: PRESENT: normal external ear exam Mouth exam: PRESENT: moist, tongue midline Neck exam: ABSENT: carotid bruit, JVD, lymphadenopathy, thyromegaly Respiratory exam: PRESENT: accessory muscle use, crackles. ABSENT: rales, rhonchi, wheezes Cardiovascular exam: PRESENT: RRR, tachycardia. ABSENT: diastolic murmur, rubs, systolic murmur Pulses: PRESENT: other - Cool extremities with livedo reticularis and unpalpable pulses Vascular exam: PRESENT: normal capillary refill GI/Abdominal exam: PRESENT: normal bowel sounds, soft. ABSENT: distended, guarding, mass, organolmegaly, rebound, tenderness Rectal exam: PRESENT: deferred Extremities exam: PRESENT: other - Widespread livedo reticularis with cool extremities and unpalpable pulses Neurological exam: PRESENT: altered, CN II-XII grossly intact. ABSENT: oriented to time, oriented to situation, reflexes normal Psychiatric exam: PRESENT: appropriate affect. ABSENT: homicidal ideation, suicidal ideation Skin exam: PRESENT: other - Multiple ischemic, necrotic distal ulcers, stage IV sacral ulcer and fluctuant drainage from amputation site.. ABSENT: cyanosis, rash Results Laboratory Results: 01/25/20 13:03 01/25/20 13:03 01/25/20 01/25/20 01/25/20 13:03 13:03 13:03 WBC 22.4 H RBC 3.23 L Hgb 8.4 L Hct 27.7 L MCV 86 MCH 26.1 L MCHC 30.5 L RDW 19.8 H Plt Count 166 Seg Neutrophils % Not Reportable Carbonic Acid HCO3/H2CO3 Ratio ABG pH ABG pCO2 ABG pO2 ABG HCO3 ABG O2 Saturation ABG Base Excess FiO2 Sodium 131.7 L Potassium 3.9 Chloride 97 L Carbon Dioxide 19 L Anion Gap 16 BUN 23 H Creatinine 1.81 H Est GFR ( Amer) 43 L Glucose 130 H Lactic Acid 5.6 H Calcium 8.4 Total Bilirubin 1.5 H AST 5064 H Alkaline Phosphatase 157 H Total Protein 4.7 L Albumin 2.4 L Urine Color Urine Appearance Urine pH Ur Specific [place] Urine Protein Urine Glucose (UA) Urine Ketones Urine Blood Urine RBC (Auto) 01/25/20 01/25/20 01/25/20 14:10 14:25 16:40 WBC RBC Hgb Hct MCV MCH MCHC RDW Plt Count Seg Neutrophils % Carbonic Acid 0.83 L HCO3/H2CO3 Ratio 19:1 ABG pH 7.38 ABG pCO2 27.5 L ABG pO2 70.5 L ABG HCO3 16.0 L ABG O2 Saturation 94.3 ABG Base Excess -8.0 FiO2 28% Sodium Potassium Chloride Carbon Dioxide Anion Gap BUN Creatinine Est GFR ( Amer) Glucose Lactic Acid 5.1 H Calcium Total Bilirubin AST Alkaline Phosphatase Total Protein Albumin Urine Color YELLOW Urine Appearance TURBID Urine pH 5.0 Ur Specific [place] 1.023 Urine Protein 100 H Urine Glucose (UA) NEGATIVE Urine Ketones TRACE H Urine Blood LARGE H Urine RBC (Auto) 179 01/25/20 20:18 WBC RBC Hgb Hct MCV MCH MCHC RDW Plt Count Seg Neutrophils % Carbonic Acid HCO3/H2CO3 Ratio ABG pH ABG pCO2 ABG pO2 ABG HCO3 ABG O2 Saturation ABG Base Excess FiO2 Sodium Potassium Chloride Carbon Dioxide Anion Gap BUN Creatinine Est GFR ( Amer) Glucose Lactic Acid 4.0 H Calcium Total Bilirubin AST Alkaline Phosphatase Total Protein Albumin Urine Color Urine Appearance Urine pH Ur Specific [place] Urine Protein Urine Glucose (UA) Urine Ketones Urine Blood Urine RBC (Auto) Impressions: Chest X-Ray 01/25/20 13:14 IMPRESSION: Cardiomegaly, bilateral pleural effusions and indistinctness of the interstitium. Clinical correlation to exclude CHF/ pulmonary edema is recommended. Assessment and Plan - Diagnosis (1) Severe sepsis Is this a current diagnosis for this admission?: Yes Plan: Multiorgan failure, bilateral extremity gangrene, intolerant of aggressive measures patient's sensibly wishes for comfort measures only. (2) Comfort measures only status Is this a current diagnosis for this admission?: Yes Plan: Obtunded, fentanyl as needed - Time Time Spent with patient: 15-24 minutes - Inpatient Certification Medical Necessity: Need Close Monitoring Due to Risk of Patient Decompensation
[2020-01-26] MEDS ORDERED: LORAZEPAM INJ 2 MG/1 ML VIAL IV PRN (08:15)
[2020-01-26] MEDS ORDERED: ATROPINE SULFATE 1% OPH SOLN 5 ML BOTTLE SL PRN (08:16)
[2020-01-26] MEDS: MORPHINE SULFATE 10 MG/ML INJ IV PRN ×5 (08:48→23:53)
--- NOTE | 2020-01-26 14:14 | PDOC PROGRESS REPORT ---
Subjective Progress Note for:: 01/26/20 Subjective:: ANTONIO HELM is a 84 year old male with extensive past medical history of end- stage renal failure on hemodialysis, dementia, peripheral vascular disease status post right and left lower extremity amputation and sacral decubitus who was admitted 01/25/20 with severe sepsis for comfort care measures. Patient was seen on morning rounds. He was found resting in bed, comfortably, having just received prn Morphine. Per nursing, patient is occasional arousable and calls out. He does not follow directions or answer questions. ROS is limited r/t mental status. No concerns per nursing. 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 ABSENT: scleral icterus Mouth exam: PRESENT: dry mucosa Teeth exam: PRESENT: edentulous Respiratory exam: PRESENT: accessory muscle use, decreased breath sounds, symmetrical, tachypnea, other - shallow Cardiovascular exam: PRESENT: RRR Pulses: PRESENT: other - unable to ptalpate pedal pulse; leg mottled and cool to mid-thigh. ABSENT: +1 pedal pulses bilateral Neurological exam: PRESENT: altered Skin exam: PRESENT: other - Multiple ischemic, necrotic distal ulcers, stage IV sacral ulcer and fluctuant drainage from amputation site. ABSENT: intact Results Laboratory Results: 01/25/20 13:03 01/25/20 13:03 01/25/20 01/25/20 01/25/20 13:03 13:03 14:10 WBC 22.4 H RBC 3.23 L Hgb 8.4 L Hct 27.7 L MCV 86 MCH 26.1 L MCHC 30.5 L RDW 19.8 H Plt Count 166 Carbonic Acid 0.83 L HCO3/H2CO3 Ratio 19:1 ABG pH 7.38 ABG pCO2 27.5 L ABG pO2 70.5 L ABG HCO3 16.0 L ABG O2 Saturation 94.3 ABG Base Excess -8.0 FiO2 28% Sodium 131.7 L Potassium 3.9 Chloride 97 L Carbon Dioxide 19 L Anion Gap 16 BUN 23 H Creatinine 1.81 H Est GFR ( Amer) 43 L Glucose 130 H Lactic Acid Calcium 8.4 Total Bilirubin 1.5 H AST 5064 H Alkaline Phosphatase 157 H Total Protein 4.7 L Albumin 2.4 L Urine Color Urine Appearance Urine pH Ur Specific [place] Urine Protein Urine Glucose (UA) Urine Ketones Urine Blood Urine RBC (Auto) 01/25/20 01/25/20 01/25/20 14:25 16:40 20:18 WBC RBC Hgb Hct MCV MCH MCHC RDW Plt Count Carbonic Acid HCO3/H2CO3 Ratio ABG pH ABG pCO2 ABG pO2 ABG HCO3 ABG O2 Saturation ABG Base Excess FiO2 Sodium Potassium Chloride Carbon Dioxide Anion Gap BUN Creatinine Est GFR ( Amer) Glucose Lactic Acid 5.1 H 4.0 H Calcium Total Bilirubin AST Alkaline Phosphatase Total Protein Albumin Urine Color YELLOW Urine Appearance TURBID Urine pH 5.0 Ur Specific [place] 1.023 Urine Protein 100 H Urine Glucose (UA) NEGATIVE Urine Ketones TRACE H Urine Blood LARGE H Urine RBC (Auto) 179 Impressions: Chest X-Ray 01/25/20 13:14 IMPRESSION: Cardiomegaly, bilateral pleural effusions and indistinctness of the interstitium. Clinical correlation to exclude CHF/ pulmonary edema is recommended. Assessment and Plan - Diagnosis (1) Comfort measures only status Is this a current diagnosis for this admission?: Yes Plan: Comfort Care order set deployed. As needed IV morphine, IV Ativan, [place] Tylenol, and [place] Atropine gtt for symptom management. Discharge planning consulted as patient's had indicated desire to return home with hospice services. (2) Severe sepsis Is this a current diagnosis for this admission?: Yes Plan: Multiorgan failure, bilateral extremity gangrene, intolerant of aggressive measures. Patient's sensibly wishes for comfort measures only. (3) Shock liver Is this a current diagnosis for this admission?: Yes (4) Congestive heart failure Qualifiers: Heart failure chronicity: acute on chronic Qualified Code(s): I50.9 - Heart failure, unspecified Is this a current diagnosis for this admission?: Yes (5) End-stage renal disease on hemodialysis Is this a current diagnosis for this admission?: Yes (6) Hx of AKA (above knee amputation) Qualifiers: Laterality: right Qualified Code(s): Z89.611 - Acquired absence of right leg above knee Is this a current diagnosis for this admission?: Yes - Time Time Spent with patient: 35 or more minutes Medications reviewed and adjusted accordingly: Yes
--- NOTE | 2020-01-26 20:49 | EKG REPORT ---
SEVERITY:- ABNORMAL ECG - VENTRICULAR-PACED RHYTHM : Confirmed by: Marcel Gallegos 26-Jan-2020 20:48:03
[2020-01-27] MEDS: MORPHINE SULFATE 10 MG/ML INJ IV PRN ×5 (05:04→21:05)
[2020-01-27 08:25] VITALS: BP 103/41
[2020-01-28] MEDS: MORPHINE SULFATE 10 MG/ML INJ IV PRN ×2 (01:53→04:24)
--- NOTE | 2020-01-28 07:48 | Death Summary ---
Summary Date : 01/28/20 Time of :: 05:00 Autopsy: No Resuscitation Status: Comfort Measures Only - Final Diagnosis (1) Comfort measures only status Is this a current diagnosis for this admission?: Yes (2) Severe sepsis Is this a current diagnosis for this admission?: Yes (3) Shock liver Is this a current diagnosis for this admission?: Yes (4) Congestive heart failure Is this a current diagnosis for this admission?: Yes (5) End-stage renal disease on hemodialysis Is this a current diagnosis for this admission?: Yes (6) Hx of AKA (above knee amputation) Is this a current diagnosis for this admission?: Yes Hospital Course:: Per H&P: ANTONIO HELM is a 84 year old male with extensive past medical history of end-stage renal failure on hemodialysis, dementia, peripheral vascular disease status post right and left lower extremity amputation and sacral decubitus. He presents after found hypotensive during dialysis which is discontinued prematurely was brought to the emergency room by EMS requiring Levophed. In the emergency department he is altered and nonverbal with severe hypotension and sepsis with several necrotic ulcers of the lower extremity and recent amputation site with livedo reticularis. The patient's who is power of sound ranging crewmember declines any further aggressive management including central line placement, dialysis or surgery wishing for comfort measures only. Levo fed is discontinued and he is transferred to the hospitalist for inpatient comfort care. Patient's CODE STATUS is verified is DNR. Course: Patient was admitted to the medical floor for Comfort Care measures. Initially, the patient's expressed interest in discharge to home with hospice services; however, the patient's condition was too unstable for discharge. The patient's symptoms were managed by IV Morphine and Ativan as needed. Arrangements were made for the patient's family members to be at bedside. His clinical decline proceeded as expected and he at 0500 on 01/28/20.
== END 2020-01-28 05:30 | DRG 871 ==
LOC: ER 12:54 → EH 20:30 → 4W 23:00
PROVIDERS: ADMIT Internal Medicine; ATTEND Registered Nurse
DX: A41.9 Sepsis, unspecified organism (principal); L89.154 Pressure ulcer of sacral region, stage 4; K72.00 Acute and subacute hepatic failure without coma; N18.6 End stage renal disease; E10.52 Type 1 diabetes mellitus with diabetic peripheral angiopathy with gangrene; I96 Gangrene, not elsewhere classified; M86.38 Chronic multifocal osteomyelitis, other site; R65.20 Severe sepsis without septic shock; I50.9 Heart failure, unspecified; F03.90 Unspecified dementia, unspecified severity, without behavioral disturbance, psychotic disturbance, mood disturbance, and anxiety; I95.3 Hypotension of hemodialysis; I25.10 Atherosclerotic heart disease of native coronary artery without angina pectoris; I25.2 Old myocardial infarction; J44.9 Chronic obstructive pulmonary disease, unspecified; E10.22 Type 1 diabetes mellitus with diabetic chronic kidney disease; Z66 Do not resuscitate; E10.69 Type 1 diabetes mellitus with other specified complication; E10.622 Type 1 diabetes mellitus with other skin ulcer; F32.9 Major depressive disorder, single episode, unspecified; Z99.2 Dependence on renal dialysis; Z51.5 Encounter for palliative care; Z89.619 Acquired absence of unspecified leg above knee; Z95.1 Presence of aortocoronary bypass graft; Z95.0 Presence of cardiac pacemaker; Z79.82 Long term (current) use of aspirin; Z79.4 Long term (current) use of insulin; Z79.899 Other long term (current) drug therapy; Z79.01 Long term (current) use of anticoagulants
CPT/HCPCS: 36415; 36600; 71045; 80053; 81001; 82803; 83605; 85025; 85610; 87040; 87086; 93005; 93010; 96365; 96366; 96367; 99285; J2270; J2543; J3010; J3490; J7050; J7060